=== PATIENT | female | born 1960 | race Caucasian/White ===

== ENCOUNTER → 2018-12-29 | Outpatient (CLI) | payer SELFPAY ==
[~2018-12-29] MED LIST: ASTRAGALUS PO; CALCIUM VIT D PO; ESOM40CA PO; GUAI120015 PO; MEGA RED PO; MONT10TA24 PO; MULTIVITAMIN PO
== END | disposition home or self-care (01) ==
LOC: RAH 16:05
PROVIDERS: ATTEND Orthopaedic Surgery
DX: M17.12 Unilateral primary osteoarthritis, left knee (principal); M25.462 Effusion, left knee
CPT/HCPCS: 73721